=== PATIENT | female | born 1995 | race Caucasian/White ===

== ENCOUNTER 2017-07-13 14:48 | Emergency (ER) | payer OTHER ==
[~2017-07-13] VITALS: Ht 160 cm; Wt 58.0 kg
[2017-07-13 15:05] VITALS: TEMP 36.7; Ht 160 cm; Wt 58.0 kg
--- NOTE | 2017-07-13 15:40 | EMERGENCY ROOM VISIT NOTE ---
ED Visit Note First contact with patient: 15:29 CHIEF COMPLAINT: Rash HISTORY OF PRESENT ILLNESS: This 22-year-old female patient presents to the emergency department, ambulatory, complaining of a rash on her abdomen and back which started 2 nights ago. The patient states the rash is minimally itchy, but denies drainage, recent illness, upper respiratory infection. The patient states she recently moved into a new apartment, which was furnished prior to arrival. The patient denies fever, chills, nausea, or loss of appetite. They deny any URI symptoms. The patient has tried only her regular antihistamine with minimal relief of the itchiness. The patient states the rash is not painful and rates the discomfort as 0/10. No change in food, soap, detergents, or other environmental factors, with the exception of her recent move. No new medications. No weakness or numbness. The patient is concerned that the rash could be chickenpox. She was previously vaccinated. REVIEW OF SYSTEMS: A 6 system review of systems was completed with positives and pertinent negatives listed in the HPI. ALLERGIES: Bedbugs MEDICATIONS: Hemalatha PMH: Seasonal allergies SOCIAL HISTORY: The patient is a [employer]. She lives locally with a roommate. PHYSICAL EXAM: Vital Signs: Reviewed Nurse's notes, vital signs stable. GENERAL: This is an otherwise healthy 22-year-old female, in no acute distress, well-developed, well-nourished. SKIN: Very faint, maculopapular rash on the anterior and posterior torso. There are no vesicles. There is no drainage. There is no erythema surrounding the lesions. The lesions do kalpana with pressure. Capillary refill less than 2 seconds. HEAD: Normocephalic atraumatic. EARS: External auditory canals clear, tympanic membranes pearly friedman without erythema or effusion bilaterally. EYES: Pupils equal round and reactive to light and accommodation. Conjunctivae without injection, sclerae without icterus. Extraocular movements intact. NOSE: Patent, turbinates without inflammation or discharge. No sinus tenderness. MOUTH: Mucous membranes moist. Tonsils are not enlarged. Pharynx without erythema or exudate. Uvula midline. Airway patent. Tongue does not deviate. NECK: Supple without nuchal rigidity. No lymphadenopathy. No thyromegaly. Cervical spine is nontender. No JVD. HEART: Regular rate and rhythm without murmurs gallops or rubs. LUNGS: Clear to auscultation bilaterally without wheezes, rales or rhonchi. No dullness to percussion. No retractions or accessory muscle use. EMERGENCY DEPARTMENT COURSE: She was seen and evaluated as above. I do not feel that the rash appears as a varicella rash. I suspect more of a dermatitis or allergic type of rash. I discussed with the patient treatment options including steroid cream and follow-up with [facility]. The patient is in agreement with the assessment and plan, and was discharged home in good condition. DIFFERENTIAL DIAGNOSIS: Varicella, dermatitis - allergic or contact, viral exanthem, bacterial infection, and others DIAGNOSIS: Acute dermatitis DISCHARGE INSTRUCTIONS: Continue taking your antihistamine medication as he normally do. Use OTC hydrocortisone cream for the itchiness and to help with the rash. Try not to scratch at the rash, as this could open up the lesions, allowing bacteria to enter, which could lead to an infection. Few experience pus, increased redness, or worsening rash, return to emergency department or seek care at [facility] for further evaluation and management. Take tepid showers, and avoid getting the skin too hot. Keep the skin clean and dry. As you recently moved to a new apartment, you may want to consider looking for possible causes and the furniture, and avoid sitting on furniture which is not covered. For pain control, you can use the following [id number] medicines (if >12 yo): - Regular strength (325mg/tab) Tylenol (acetaminophen) 2 tabs every 4-6 hours as needed. Do not exceed 9 tablets in a 24 hour period. Avoid taking more than 3 grams (3000 mg) of Tylenol per day. This includes any other sources of acetaminophen you may take on a regular basis. - Regular strength (200 mg/tab) Advil (ibuprofen) 1-2 tabs every 4-6 hours as needed. Do not exceed a dose of 2400 mg per day. Return to the emergency department for worsening redness, itchiness, pus, fever , chills, nausea, vomiting, or other concerning symptoms. Please follow up with [facility] in 1-2 days for recheck of the rash. Current/Historical Medications Scheduled Fexofenadine Hcl (Hemalatha Allergy), 1 TAB PO DAILY Allergies Coded Allergies: Uncoded Nonscreenable Allergen (Verified Allergy, Unknown, RASH, 07/13/17) BEDBUGS Vital Signs Date Time Temp Pulse Resp B/P (MAP) Pulse Ox O2 Delivery O2 Flow Rate FiO2 07/13/17 16:12 51 18 115/77 100 07/13/17 15:05 36.7 64 16 107/68 100 Departure Information Impression Primary Impression: Dermatitis Dispostion Home / Self-Care Condition GOOD Patient Instructions ED Dermatitis Non Specific Rash, My [facility] Additional Instructions Continue taking your antihistamine medication as he normally do. Use OTC hydrocortisone cream for the itchiness and to help with the rash. Try not to scratch at the rash, as this could open up the lesions, allowing bacteria to enter, which could lead to an infection. Few experience pus, increased redness, or worsening rash, return to emergency department or seek care at [facility] for further evaluation and management. Take tepid showers, and avoid getting the skin too hot. Keep the skin clean and dry. As you recently moved to a new apartment, you may want to consider looking for possible causes and the furniture, and avoid sitting on furniture which is not covered. For pain control, you can use the following [id number]-[id number] medicines (if >12 yo): - Regular strength (325mg/tab) Tylenol (acetaminophen) 2 tabs every 4-6 hours as needed. Do not exceed 9 tablets in a 24 hour period. Avoid taking more than 3 grams (3000 mg) of Tylenol per day. This includes any other sources of acetaminophen you may take on a regular basis. - Regular strength (200 mg/tab) Advil (ibuprofen) 1-2 tabs every 4-6 hours as needed. Do not exceed a dose of 2400 mg per day. Return to the emergency department for worsening redness, itchiness, pus, fever , chills, nausea, vomiting, or other concerning symptoms. Please follow up with [facility] in 1-2 days for recheck of the rash.
[2017-07-13] MEDS ORDERED: FEXO1TAB49 PO (15:57)
[2017-07-13 16:12] VITALS: BP 115/77; PULSE 51; O2SAT 100
== END 2017-07-13 16:13 | disposition home or self-care (01) ==
LOC: C.EDB 14:55 → C.EDD 16:13
DX: L30.9 Dermatitis, unspecified (principal); J30.2 Other seasonal allergic rhinitis